=== PATIENT | male | born 1950 | race Caucasian/White ===

== ENCOUNTER 2017-03-18 08:23 | Observation (INO) ==
--- NOTE | 2017-03-18 08:31 | Emergency Department Note ---
Disposition Clinical Impression: Chest pain Disposition: Admitted As Inpatient Condition: Good General Adult HPI - General Chief complaint: ED Chest Pain Stated complaint: Chest Pain Time Seen by Provider: 03/18/17 08:26 Source: patient, EMS Limitations: no limitations - History of Present Illness Pain Scale: 4 - Related Data Home Medications Medication Instructions Recorded Confirmed Levothyroxine Sodium [Synthroid] 88 mcg PO DAILY 05/29/15 03/18/17 Aspirin [Lo-Dose Aspirin EC] 81 mg PO DAILY 03/18/17 03/18/17 Fluticasone Propionate Nasal 50 mcg NS DAILY 03/18/17 03/18/17 [Flonase] Lactobacillus Acidophilus/Fos 1 tab PO DAILY 03/18/17 03/18/17 [Acidophilus Probiotic Tablet] Multivit-Min/FA/Lycopen/Lutein 1 tab PO DAILY 03/18/17 03/18/17 [Centrum Silver Men Tablet] Allergies Allergy/AdvReac Type Severity Reaction Status Date / Time Penicillins Allergy See Verified 03/18/17 09:37 Comments Past Medical History - Past Medical History Medical history: Reports: thyroid disease Psychiatric history: Reports: no psych history - Social History Smoking Status: Never smoker Smokeless Tobacco Status: No Alcohol use: Reports: occasionally Drug use: Reports: none Physical Exam - General Limitations: no limitations General appearance: alert, in no apparent distress Course Vital Signs Temperature 97.5 F L 03/18/17 08:25 Pulse Rate 68 03/18/17 08:25 Respiratory Rate 16 03/18/17 08:25 Blood Pressure 157/106 03/18/17 08:25 O2 Sat by Pulse Oximetry 99 03/18/17 08:25 Temperature 98.1 F 03/18/17 15:02 Pulse Rate 63 03/18/17 15:02 Respiratory Rate 18 03/18/17 15:02 Blood Pressure 106/63 03/18/17 15:02 O2 Sat by Pulse Oximetry 93 03/18/17 15:02 Oxygen Delivery Oxygen Delivery Room Air Medical Decision Making - Lab Data Result diagrams: 03/18/17 08:43 03/18/17 08:43 Lab Results 03/18/17 03/18/17 03/18/17 Range/Units 08:43 08:43 08:43 WBC 3.5 L (4.3-11.1) K/mcL RBC 4.00 L (4.19-5.50) M/mcL Hgb 13.0 (12.9-16.9) g/dL Hct 37.7 (37.5-50.1) % MCV 94.3 (83.0-100.0) fL MCH 32.5 (28.0-33.3) pg MCHC 34.5 (31.6-35.5) g/dL RDW 12.2 (11.5-14.5) % Plt Count 223 (140-400) K/mcL MPV 9.1 L (9.4-12.4) fL Immature Gran % 0.3 (0-4) % Seg Neutrophils % 40.8 % Lymphocytes % 36.3 % Monocytes % 11.0 % Eosinophils % 10.4 % Basophils % 1.2 % Neutrophils # 1.4 L (1.6-8.9) K/mcL Lymphocytes # 1.3 (0.6-4.6) K/mcL Monocytes # 0.4 (0.0-1.3) K/mcL Eosinophils # 0.4 (0.0-0.6) K/mcL Basophils # 0.0 (0.0-0.2) K/mcL Sodium 136 (136-145) mEq/L Potassium 3.5 (3.5-4.5) mEq/L Chloride 102 (98-109) mEq/L Carbon Dioxide 23 (19-29) mEq/L BUN 5 L (8-26) mg/dL Creatinine 0.73 (0.72-1.25) mg/dL Est GFR ( Amer) > 60 (> 60) Est GFR (Non-Af Amer) > 60 (> 60) BUN/Creatinine Ratio 7 (6-26) Glucose 96 (70-99) mg/dL Calculated Osmolality 279 L (280-300) Calcium 8.8 (8.6-10.8) mg/dL Troponin I 0.00 (0-0.03) ng/mL Attestation Statement - Attestation Attestation: I examined this patient and my medical decision-making was reviewed with the REHABILITATION COUNSELOR/PA/Advanced Practice Nurse/Resident Physician. I agree with the documented findings, disposition and treatment plan as described except to the extent set forth below. [id number] time provided Patient presents via EMS complaining of chest discomfort. He denies having any previous past medical history. He appears in acute distress on exam. EKG reviewed by me
--- NOTE | 2017-03-18 08:34 | Emergency Department Note ---
Disposition Clinical Impression: Chest pain Qualifiers: Chest pain type: unspecified Qualified Code(s): R07.9 - Chest pain, unspecified Disposition: Admitted As Inpatient Condition: Good Forms: ED Satisfaction Letter Chest Pain HPI - General Chief Complaint: ED Chest Pain Stated Complaint: Chest Pain Time Seen by Provider: 03/18/17 08:26 Source: patient, EMS Limitations: no limitations Vital Signs Reviewed: Yes Nursing Notes Reviewed: Yes - History of Present Illness HPI Narrative: 66-year-old male with a history of thyroid disease presents to the emergency department with a chief complaint of chest pressure. He woke up this morning about 2 hours ago and had chest pressure in the middle of the chest. He denies any radiation but states he did feel a little weird in the side of his left neck and shoulder. He felt lightheaded like he was going to pass out. He reports he has had milder symptoms of this over the last 4 days. He related this to recently shoveling and performing a lot of manual labor. He states he feels generally weak but not focally. He denies any headache, change in vision. Denies any ripping or tearing chest pain. Denies any shortness of breath. Denies any lower extremity swelling or history of DVT/PE. His mother had heart disease in her 50s an his brother had a heart stent. He has no personal history of coronary disease and states he is very healthy other than taking his Synthroid daily. Severity scale (1-10): 4 - Related Data Home Medications Medication Instructions Recorded Confirmed Levothyroxine Sodium [Synthroid] 88 mcg PO DAILY 05/29/15 Allergies Allergy/AdvReac Type Severity Reaction Status Date / Time Penicillins Allergy See Verified 03/11/16 18:47 Comments All systems ED: reviewed and negative except as stated. Constitutional: Denies: fever Eyes: Denies: vision change Cardiovascular: Reports: chest pain. Denies: palpitations, syncope Respiratory: Denies: dyspnea Gastrointestinal: Denies: abdominal pain, nausea, vomiting Musculoskeletal: Denies: back pain, neck pain Neurological: Denies: headache, weakness, numbness Chest Pain PMH - Past Medical History Medical history: Reports: thyroid disease Psychiatric history: Reports: no psych history - Social History Smoking Status: Never smoker Alcohol use: Reports: occasionally Drug use: Reports: none Physical Exam General: Appears well, alert and oriented x 3 Cardiovascular: Regular rate and rhythm. S1, S2. No murmurs, rubs or gallops. Respiratory: Breath sounds clear bilaterally. No wheezing, rales or rhonchi. No resp distress Abdomen: Soft, nontender. No guarding, rebound or rigidity. Eyes: Conjunctiva clear HENT: No JVD, No oral mucosal lesions. Moist mucous membranes Neuro: Alert and oriented 3, stands nebulous independently Musculoskeletal: No joint tenderness or swelling. There is no redness, swelling , edema, asymmetry or any signs of DVT Skin: No lesions. No diaphoresis. Normal turgor. Normal color Psych: Appropriate - General Limitations: no limitations General appearance: alert, in no apparent distress Course Course Narrative: Presents to the emergency department with chest pressure. He also has sensation to his neck and arm. It abruptly woke him from sleep. No history of CAD however, both his brother and mother had coronary stents placed in their 50s. He had a stress test about 5 years ago but no other testing. EKG shows no acute changes. Troponin is not elevated however his symptoms started only a few hours ago. Vitals have been stable. Labwork unremarkable. Chest x-ray clear. Patient does have a concerning story with a strong family history and we feel it important to admit for further evaluation. I discussed this with the on-call hospitalist, Dr. Pozo who accepts for admission Vital Signs Temperature 97.5 F L 03/18/17 08:25 Pulse Rate 68 03/18/17 08:25 Respiratory Rate 16 03/18/17 08:25 Blood Pressure 157/106 03/18/17 08:25 O2 Sat by Pulse Oximetry 99 03/18/17 08:25 Temperature 97.5 F L 03/18/17 08:25 Pulse Rate 68 03/18/17 08:25 Respiratory Rate 16 03/18/17 08:25 Blood Pressure 157/106 03/18/17 08:25 O2 Sat by Pulse Oximetry 99 03/18/17 08:25 Oxygen Delivery Oxygen Delivery Room Air Chest Pain - MDM Narrative Medical decision making narrative: EKG shows a sinus rhythm with a rate of [address] elevation or depression. Intervals within normal limits. T-wave flattening in lead 3. Previous EKG on 08/04/2014 shows a normal T wave in lead 3 but no other changes. - Lab Data Result diagrams: 03/18/17 08:43 03/18/17 08:43 Lab Results 03/18/17 03/18/17 03/18/17 Range/Units 08:43 08:43 08:43 WBC 3.5 L (4.3-11.1) K/mcL RBC 4.00 L (4.19-5.50) M/mcL Hgb 13.0 (12.9-16.9) g/dL Hct 37.7 (37.5-50.1) % MCV 94.3 (83.0-100.0) fL MCH 32.5 (28.0-33.3) pg MCHC 34.5 (31.6-35.5) g/dL RDW 12.2 (11.5-14.5) % Plt Count 223 (140-400) K/mcL MPV 9.1 L (9.4-12.4) fL Immature Gran % 0.3 (0-4) % Seg Neutrophils % 40.8 % Lymphocytes % 36.3 % Monocytes % 11.0 % Eosinophils % 10.4 % Basophils % 1.2 % Neutrophils # 1.4 L (1.6-8.9) K/mcL Lymphocytes # 1.3 (0.6-4.6) K/mcL Monocytes # 0.4 (0.0-1.3) K/mcL Eosinophils # 0.4 (0.0-0.6) K/mcL Basophils # 0.0 (0.0-0.2) K/mcL Sodium 136 (136-145) mEq/L Potassium 3.5 (3.5-4.5) mEq/L Chloride 102 (98-109) mEq/L Carbon Dioxide 23 (19-29) mEq/L BUN 5 L (8-26) mg/dL Creatinine 0.73 (0.72-1.25) mg/dL Est GFR ( Amer) > 60 (> 60) Est GFR (Non-Af Amer) > 60 (> 60) BUN/Creatinine Ratio 7 (6-26) Glucose 96 (70-99) mg/dL Calculated Osmolality 279 L (280-300) Calcium 8.8 (8.6-10.8) mg/dL Troponin I 0.00 (0-0.03) ng/mL
[2017-03-18 08:55] LABS: Basophils % 1.2 %; Eosinophils # 0.4 K/mcL (0.0-0.6); Eosinophils % 10.4 %; Hematocrit 37.7 % (37.5-50.1); Immature Granulocytes % 0.3 % (0-4); Lymphocytes # 1.3 K/mcL (0.6-4.6); Lymphocytes % 36.3 %; Mean Corpuscular HGB Conc 34.5 g/dL (31.6-35.5); Mean Corpuscular Hemoglobin 32.5 pg (28.0-33.3); Mean Corpuscular Volume 94.3 fL (83.0-100.0); Mean Platelet Volume 9.1 fL (9.4-12.4); Monocytes # 0.4 K/mcL (0.0-1.3); Neutrophils # 1.4 K/mcL (1.6-8.9); Platelet Count 223 K/mcL (140-400); Red Cell Distribution Width 12.2 % (11.5-14.5); Segmented Neutrophils % 40.8 %
[2017-03-18 09:07] LABS: BUN/Creatinine Ratio 7 (6-26); Calcium 8.8 mg/dL (8.6-10.8); Carbon Dioxide 23 mEq/L (19-29); Chloride 102 mEq/L (98-109); Glucose 96 mg/dL (70-99); Osmolality,Calculated 279 (280-300); Potassium 3.5 mEq/L (3.5-4.5); Sodium 136 mEq/L (136-145); eGFR For African Americans > 60 (> 60); eGFR For Non-African Americans > 60 (> 60)
[2017-03-18 09:10] LABS: Blood Urea Nitrogen 5 mg/dL (8-26)
[2017-03-18] MEDS ORDERED: Acetaminophen 325 MG TABLET PO PRN (09:31)
[2017-03-18] MEDS ORDERED: Ondansetron 4 MG/2 ML VIAL IVP PRN (09:31)
[2017-03-18] MEDS ORDERED: Naloxone 0.4 MG/ML INJ IVP PRN (09:31)
[2017-03-18] MEDS ORDERED: Nitroglycerin 0.4 MG TAB.SUBL SL PRN (09:31)
--- NOTE | 2017-03-18 10:12 | Internal Med History&Physical ---
Date of Encounter: 03/18/17 Time of Encounter: 10:10 Assessment and Plan (1) Chest pain Current visit: Yes Status: Acute Patient had chest pain that started 2 days ago after heavy exertion and which occurred today that woke him out of sleep. Patient has a history of injury that he sustained to his ribs during a wrestling match about 20 years ago which he states has caused him pain that has never resolved. He thinks that his chest pain may be related to worsening of his rib pain due to shoveling as he is the left handed person. Examination reveals reproducible chest wall tenderness. EKG reveals normal sinus rhythm without any ST-T wave changes. Troponin is negative. Patient will be placed under observation telemetry. Troponins will be cycled. Due to his age and history of TIA, he will undergo an exercise stress test if his troponins are negative. Continue aspirin and start him on statin given his history of TIA. Qualifiers: Chest pain type: precordial pain Qualified Code(s): R07.2 - Precordial pain (2) Hypothyroidism Current visit: Yes Status: Chronic Check TSH level. Continue home dose of Synthroid. Qualifiers: Hypothyroidism type: unspecified Qualified Code(s): E03.9 - Hypothyroidism , unspecified (3) H/O TIA (transient ischemic attack) and stroke Current visit: Yes Status: Chronic Patient is currently on aspirin. No neurological deficits. Start the patient on statin due to his history of TIA. (4) Alcohol abuse Current visit: Yes Status: Chronic Patient counseled regarding the need for cutting down on his alcohol use. We will start the patient on folic acid and thiamine. Matthew protocol and monitor for all called withdrawal seizures or delirium tremens. Internal Medicine - H&P: HPI Chief complaint: Chest pressure Admitted From: Emergency Dept Plans for Post Hospital Care: Home History of present illness: Mr. Rodriguez is a 66 year old male with a history significant only for hypothyroidism and TIA about 2 years ago presented to the emergency department due to chest pressure. Patient states that the current complaint started 2 days ago at 5 PM. He states that 2 days ago in the afternoon he was shoveling and later he was mowing his lawn on an incline. After he was done with these activities at about 5 PM, he started experiencing chest pain on the left side of his chest which he describes as a pressure-like sensation of 5/10 intensity without any radiation. No aggravating or relieving factors. This was associated with mild shortness of breath. He describes it as "as if his heart is in his throat". He had a second episode of chest pain that woke him up from sleep today morning about 3 hours ago. He states that his pain was again on the left side and he described it as a pressure-like sensation of 6/10 intensity without any radiation. He states that he also felt tingling all over his body and felt a funny sensation in his neck. This was associated with feeling lightheaded. He reports having mild palpitations which she attributes to anxiety. He denies any cough, wheezing, fever or chills. He denies any vomiting though he reports mild nausea. He denies any abdominal pain, diarrhea or constipation. He denies any recent weight changes or changes in his appetite. Past Med Surg Social Fam HX - Past Medical History Attestation: Yes The following information was validated with the patient. Source: patient Medical history: thyroid disease, TIA, other (Bruxism) Psychiatric history: no psych history - Past Surgical History Surgical History: other (Cleft lip surgery) - Social History Smoking Status: Former smoker Smokeless Tobacco Status: No Alcohol use: heavy (4 glasses of wine every day over the past 6 years) Drug use: none Occupational status: retired Current living situation: Home - Independent Activity Level: Independent ambulation Recent Out of Country Travel Within the Last 8 Weeks: No Exposure or Possible Exposure to Illness During Travel: No - Family History Brother Hx Family Cardiac Disorders: Yes (Coronary artery disease and stent at the age of 69) Father Hx Family GI Disorders: Yes (Liver cirrhosis) Mother Hx Family Cancer: Yes (Breast cancer) Internal Medicine - H&P: Meds Levothyroxine Sodium [Synthroid] 88 mcg PO DAILY 05/29/15 [History] Aspirin [Lo-Dose Aspirin EC] 81 mg PO DAILY 03/18/17 [History] Fluticasone Propionate Nasal [Flonase] 50 mcg NS DAILY 03/18/17 [History] Lactobacillus Acidophilus/Fos [Acidophilus Probiotic Tablet] 1 tab PO DAILY [History] Multivit-Min/FA/Lycopen/Lutein [Centrum Silver Men Tablet] 1 tab PO DAILY [History] Allergies Penicillins Allergy (Verified 03/18/17 09:37) See Comments Patient is unsure of reaction- All Systems PM: A 10-system review of systems was performed and is negative for pertinent findings except as documented above in the HPI. Review of systems: 10 systems have been reviewed and are negative except as mentioned in the history of present illness - Constitutional Vitals: Temp Pulse Resp BP Pulse Ox 97.5 F L 68 16 157/106 99 03/18/17 08:25 03/18/17 08:25 03/18/17 08:25 03/18/17 08:25 03/18/17 08:25 Exam: Gen.: Lying in bed. Mild distress. Eyes: Pupils equal, round and reactive to light. Extraocular muscles intact. ENT: Moist mucous membranes. No oropharyngeal erythema or discharge. Chest: Clear to auscultation bilaterally. No adventitious sounds present. CVS: First and second heart sounds present. No murmurs, rubs or gallops. Regular rate and rhythm. Tenderness to palpation bilaterally in the mammary and infra-axillary regions. Abdomen: Soft, nontender, nondistended. Bowel sounds present. No hepatosplenomegaly. Skin: No decubitus ulcers appreciated. 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 Psychiatric: Alert, awake and oriented to time, place and person. Lymphatic system: No lymphadenopathy appreciated Internal Med - H&P Results - Labs CBC & Chem 7: 03/18/17 08:43 03/18/17 08:43 Labs: Short CBC 03/18/17 Range/Units 08:43 WBC 3.5 L (4.3-11.1) K/mcL Hgb 13.0 (12.9-16.9) g/dL Hct 37.7 (37.5-50.1) % Plt Count 223 (140-400) K/mcL Neutrophils # 1.4 L (1.6-8.9) K/mcL BMP 03/18/17 08:43 Sodium 136 Potassium 3.5 Chloride 102 Carbon Dioxide 23 BUN 5 L Creatinine 0.73 Glucose 96 Calcium 8.8 Cardiac Enzymes 03/18/17 Range/Units 08:43 Troponin I 0.00 (0-0.03) ng/mL - EKG Data -: EKG Interpreted by Myself EKG shows normal: sinus rhythm Rate: normal - EKG Data Prior EKG available for review: yes When compared to previous EKG: there is no significant change - Impressions ITS Impressions Chest X-Ray 03/18/17 08:31 IMPRESSION: No acute cardiopulmonary process. D/ / 03/18/2017 08:57:01 Alexandria Corcoran MD / domingo Interpreting Provider: Alexandria Corcoran MD - Diagnostic Studies Chest x-ray Status: image reviewed by me (No acute infiltrate or abnormalities seen)
[2017-03-18] MEDS ORDERED: *HR* LORazepam 2 MG/ML VIAL IVP PRN ×3 (10:25)
[2017-03-18] MEDS: Thiamine (B-1) 100 MG TABLET PO SCH (11:07)
[2017-03-18] MEDS: Folic Acid 1 MG TABLET PO SCH (11:07)
[2017-03-18 13:58] LABS: Amphetamine Screen,Urine Negative ng/mL (Cutoff=1000); Barbiturate Screen,Urine Negative ng/mL (Cutoff=200); Benzodiazepines Screen,Urine Negative ng/mL (Cutoff=200); Cannabinoid Screen,Urine Negative ng/mL (Cutoff = 50); Cocaine Screen,Urine Negative ng/mL (Cutoff= 300); Opiate Screen,Urine Negative ng/mL (Cutoff=300); Phencyclidine Screen,Urine Negative ng/mL (Cutoff=25)
[2017-03-19 03:56] LABS: Basophils % 0.6 %; Eosinophils # 0.4 K/mcL (0.0-0.6); Eosinophils % 7.1 %; Hematocrit 38.5 % (37.5-50.1); Hemoglobin 13.1 g/dL (12.9-16.9); Immature Granulocytes % 0.3 % (0-4); Lymphocytes # 1.8 K/mcL (0.6-4.6); Lymphocytes % 28.4 %; Mean Corpuscular Hemoglobin 32.7 pg (28.0-33.3); Mean Platelet Volume 9.5 fL (9.4-12.4); Monocytes # 0.7 K/mcL (0.0-1.3); Monocytes % 11.3 %; Neutrophils # 3.2 K/mcL (1.6-8.9); Platelet Count 212 K/mcL (140-400); Red Blood Count 4.01 M/mcL (4.19-5.50); Red Cell Distribution Width 12.3 % (11.5-14.5); Segmented Neutrophils % 52.3 %
[2017-03-19 04:13] LABS: Alanine Aminotransferase 14 Units/L (0-55); Albumin 3.3 g/dL (3.5-5.0); Albumin/Globulin Ratio 1.1 (1.1-2.2); Alkaline Phosphatase 54 Units/L (38-126); Aspartate Amino Transferase 28 Units/L (5-34); BUN/Creatinine Ratio 13 (6-26); Bilirubin,Total 0.7 mg/dL (0.2-1.2); Blood Urea Nitrogen 12 mg/dL (8-26); Calcium 8.7 mg/dL (8.6-10.8); Carbon Dioxide 25 mEq/L (19-29); Chloride 107 mEq/L (98-109); Globulin 3.1 g/dL (2.4-3.5); Glucose 92 mg/dL (70-99); Osmolality,Calculated 287 (280-300); Sodium 139 mEq/L (136-145); Total Protein 6.4 g/dL (6.0-8.3); eGFR For African Americans > 60 (> 60); eGFR For Non-African Americans > 60 (> 60)
[2017-03-19 04:21] LABS: Potassium 3.7 mEq/L (3.5-4.5)
[2017-03-19] MEDS: Folic Acid 1 MG TABLET PO SCH (08:35)
[2017-03-19] MEDS: Thiamine (B-1) 100 MG TABLET PO SCH (08:35)
[2017-03-19] MEDS ORDERED: Aspirin Enteric Coated 81 MG Tablet PO SCH (09:00)
[2017-03-19 11:29] VITALS: BP 102/65
--- NOTE | 2017-03-19 14:41 | Exercise Stress Test ---
Exercise Stress Name: Nico Rodriguez Date of Study: 03/19/2017 Date: 1950 Ht: 66.0in Medical Record#: [id number] Age: 66 Wt: 130.0lb Gender: Male BSA: 1.67 Order #: [id number] Location: [facility] Room #: 3B23 Reading Physician: Santy Gamble MD, [facility] Technologist: Max Williamson, BUTTON CUTTING MACHINE OPERATOR, CCT Supervising Provider: Doug Joyner CNP Primary Physician: Shahnaz Paulino MD Ordering Physician: Karina Mallory CNP Impressions: Stress ECG was negative for ischemia. Exercise capacity was average. No arrhythmias noted with stress. Patient had chest pain before and during stress that did not change. Findings: Normal sinus rhythm No baseline arrhythmias were noted. Stress ECG is negative for ischemia. No arrhythmias noted during exercise or recovery. The patient demonstrated a hypertensive blood pressure response. The exercise capacity was average. Atypical chest pain History: No No Stress Test Summary: Stress Test Type: Treadmill Protocol: Santy Baseline Information: Maximum Predicted HR: 156 85% MPHR: 133 Blood Pressure: 94 / 70 Stress Information: Total Exercise Time: 11 00 Test Terminated Due To: Dyspnea Maximum Blood Pressure: 140 / 80 Maximum Heart Rate: 133 Percent Maximum Heart Rate Achieved: 85 Double Product: 18,620 METS Reached: 12.8 Updated by Santy Gamble MD, [facility] on 03/19/2017 2:32:41 PM electronically signed on 03/19/2017 2:35:30 PM with status of Final
--- NOTE | 2017-03-19 15:10 | Discharge Summary ---
Date of Encounter: 03/19/17 Time of Encounter: 14:45 - Discharge Diagnosis (1) Chest pain Priority: Primary Status: Acute Comments: Chest x-ray negative. Troponins negative. Exercise stress test negative. ACS ruled out. Qualifiers: Chest pain type: precordial pain Qualified Code(s): R07.2 - Precordial pain (2) Pleurisy Priority: Primary Status: Suspected (3) Alcohol abuse Priority: Secondary Status: Chronic Comments: No Signs of withdrawal during this admission (4) H/O TIA (transient ischemic attack) and stroke Priority: Secondary Status: Chronic Comments: No focal neurological weakness is present on examination (5) Hypothyroidism Priority: Secondary Status: Chronic Comments: TSH normal Qualifiers: Hypothyroidism type: unspecified Qualified Code(s): E03.9 - Hypothyroidism , unspecified - Discharge Medications Prescriptions: Ibuprofen [Motrin] 600 mg PO Q8HR PRN #30 tab PRN Reason: Pain Lidocaine Patch [Lidoderm 5% patch] 1 each TP DAILY PRN #20 adh..patch PRN Reason: Pain Omeprazole 20 mg PO DAILY #14 tablet. Home Medications: Levothyroxine Sodium [Synthroid] 88 mcg PO DAILY 05/29/15 [History] Aspirin [Lo-Dose Aspirin EC] 81 mg PO DAILY 03/18/17 [History] Fluticasone Propionate Nasal [Flonase] 50 mcg NS DAILY 03/18/17 [History] Lactobacillus Acidophilus/Fos [Acidophilus Probiotic Tablet] 1 tab PO DAILY [History] Multivit-Min/FA/Lycopen/Lutein [Centrum Silver Men Tablet] 1 tab PO DAILY [History] Ibuprofen [Motrin] 600 mg PO Q8HR PRN #30 tab 03/19/17 [Rx] Lidocaine Patch [Lidoderm 5% patch] 1 each TP DAILY PRN #20 adh..patch 03/19/17 [Rx] Omeprazole 20 mg PO DAILY #14 tablet. 03/19/17 [Rx] Allergies/Adverse Reactions: Allergies Penicillins Allergy (Verified 03/18/17 09:37) See Comments Patient is unsure of reaction- Procedures/tests Complete & Pending: Procedures Performed prior 72 hours Category Date Time Status SP exercise stress ECG Routine Y 03/19/17 Completed Date of admission: 03/18/17 09:39 Primary care physician: Shahnaz Ambrose Discharging clinician: Karina Mallory Anticipated date of discharge: 03/19/17 - Patient Status Disposition: Home, Self-Care Condition: Good Functional capacity at discharge: independent ambulation Overall status at discharge: patient is back to baseline - Discharge Instructions Follow Up With: Shahnaz Paulino MD [Primary Care Provider] - Additional Instructions: Follow-up with primary care provider within one to 2 weeks - Diet and Activity Activity: increase activity as tolerated Diet: low fat, low cholesterol Hospital course: Mr. Rodriguez is a 66 year old male with past mental history of hypothyroidism, prior TIA, daily alcohol abuse. Patient presented to the emergency department chief complaint of chest pressure. Patient stating that 2 days prior to presentation that he was shoveling and then later mowing his lawn when he was done with those activities, he experienced chest pain on the left side of his chest described as pressure-like sensation without radiation. He denied adequate aggravating or relieving factors. Patient also endorses mild shortness of breath. Patient described it as if his heart was in his throat. Patient then went to bed and woke up from sleep secondary to the pain. The pain was again on his left side of his chest and described as pressure-like without radiation. Patient also had tingling all over his body and he had a funny sensation in his neck. Sensation was associated with lightheadedness and mild palpitations which he attributed to anxiety. Patient denied cough, wheezing, fever or chills. He denied vomiting but did endorse mild nausea. Workup in the emergency department unremarkable. Chest x-ray negative. Tox screen negative. Patient was admitted to the hospitalist service for further evaluation and management. Troponins were negative. Patient had an exercise Stress test that was negative for ischemia or infarct. On examination, patient' s chest pain is reproducible with palpation highly consistent with musculoskeletal etiology. Patient stating he suffered a rib injury while wrestling with somebody quite a bit larger than he is about 20 years ago he states that he has had rib pain almost on a daily basis since that injury. Strong suspicion for pleurisy as his pain is worsened with deep breath and movement. We will trial one week of ibuprofen. Omeprazole added as he drinks 4 glasses of wine per day, to avoid ulcer. His pain was also alleviated with the use of a lidocaine patch which he was given a prescription for. Acute coronary syndrome ruled out. He was discharged home in stable condition with close outpatient follow-up recommended. ITS Impressions Chest X-Ray 03/18/17 08:31 IMPRESSION: No acute cardiopulmonary process. D/ / 03/18/2017 08:57:01 Alexandria Corcoran MD / domingo Interpreting Provider: Alexandria Corcoran MD Exercise stress impressions: Stress ECG was negative for ischemia. Exercise capacity was average. No arrhythmias noted with stress. Patient had chest pain before and during stress that did not change. Findings: Normal sinus rhythm. No baseline arrhythmias were noted. Stress ECG is negative for ischemia. No arrhythmias noted during exercise or recovery. The patient demonstrated a hypertensive blood pressure response. Exercise capacity was average. Atypical chest pain. - Time Spent with Patient Total time spent providing and/or coordinating discharge services: - Constitutional Vitals: Temp Pulse Resp BP Pulse Ox 97.4 F L 67 16 102/65 97 03/19/17 11:28 03/19/17 11:28 03/19/17 11:28 03/19/17 11:28 03/19/17 11:28 General appearance: Present: A&O X 3, pleasant, no acute distress, answers questions appropriately - Head Head exam: Present: atraumatic, normocephalic - Eye Eye exam: Present: PERRL, conjuntiva pink, sclera anicteric Pupils: Present: PERRL - Neck Neck exam general surgery: Present: supple, trachea midline. Absent: lymphadenopathy - Respiratory Respiratory exam: Present: chest wall tenderness, CTAB. Absent: accessory muscle use, rales, respiratory distress, rhonchi, wheezes - Cardiovascular Cardiovascular exam: Present: RRR, +S1, +S2. Absent: diastolic murmur, gallop, rubs, systolic murmur - GI/Abdominal GI/Abdominal exam: Present: normal bowel sounds, soft, no peritoneal signs. Absent: distended, tenderness - Extremities Exam Extremities exam: Present: warm, radial pulses palpable and symetrical. Absent : calf tenderness, cyanotic, pedal edema - Neurological Exam Neurological exam: Present: alert, CN II-XII intact, normal gait, oriented X3, no focal deficits, strengths equal and symetr throughout. Absent: pronater drift, facial droop, speech deficit - Skin Skin exam: Present: dry, intact, pallor, warm
--- NOTE | 2017-03-19 20:13 | Electrocardiograph Report ---
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
== END 2017-03-19 15:35 | disposition home or self-care (01) ==
LOC: EMEROO 08:23 → 3BNU 08:23
PROVIDERS: ADMIT Internal Medicine Sleep Medicine; ATTEND Nurse Practitioner Family

== ENCOUNTER 2017-08-05 11:14 | Observation (INO) ==
--- NOTE | 2017-08-05 11:28 | Emergency Department Note ---
Disposition Clinical Impression: Chest pain Qualifiers: Chest pain type: unspecified Qualified Code(s): R07.9 - Chest pain, unspecified Disposition: Admitted As Inpatient Condition: Good Referrals: Shahnaz Paulino MD [Primary Care Provider] - Forms: ED Satisfaction Letter Time of Disposition: 13:33 General Adult HPI - General Chief complaint: ED Chest Pain Stated complaint: Chest pain Time Seen by Provider: 08/05/17 11:19 Source: patient Limitations: no limitations Nursing Notes Reviewed: Yes Vital Signs Reviewed: Yes - History of Present Illness HPI Narrative: Patient complaining of a generalized weakness feeling. Also states that he started having left-sided chest pain yesterday. Also complaining of left arm pain. Right upper leg pain and right calf pain. States the chest pain as an ache. Does have associated dyspnea with this area no nausea or vomiting. Has not tried anything to relieve this. No provoking factors. The pain started while he was at rest. He has had this pain before and has had a cardiac workup. Pain Scale: 5 - Related Data Home Medications Medication Instructions Recorded Confirmed Levothyroxine Sodium [Synthroid] 88 mcg PO DAILY 05/29/15 03/18/17 Aspirin [Lo-Dose Aspirin EC] 81 mg PO DAILY 03/18/17 03/18/17 Fluticasone Propionate Nasal 50 mcg NS DAILY 03/18/17 03/18/17 [Flonase] Lactobacillus Acidophilus/Fos 1 tab PO DAILY 03/18/17 03/18/17 [Acidophilus Probiotic Tablet] Multivit-Min/FA/Lycopen/Lutein 1 tab PO DAILY 03/18/17 03/18/17 [Centrum Silver Men Tablet] Previous Rx's Medication Instructions Recorded Ibuprofen [Motrin] 600 mg PO Q8HR PRN #30 tab 03/19/17 Lidocaine Patch [Lidoderm 5% patch] 1 each TP DAILY PRN #20 adh..patch 03/19/17 Omeprazole 20 mg PO DAILY #14 tablet. 03/19/17 Allergies Allergy/AdvReac Type Severity Reaction Status Date / Time Penicillins Allergy See Verified 07/29/17 20:19 Comments All systems ED: reviewed and negative except as stated. Constitutional: Denies: fever, chills ENT ED: Denies: congestion Cardiovascular: Reports: chest pain. Denies: palpitations, dyspnea on exertion , syncope Respiratory: Reports: dyspnea (Associated with the chest pain). Denies: cough, wheezes Gastrointestinal: Denies: abdominal pain, nausea, vomiting, diarrhea, hematemesis, melena, hematochezia Genitourinary: Denies: urgency, dysuria, frequency, hematuria Musculoskeletal: Reports: other (Left arm pain. To the forearm area. Also complaining of nodules to his left forearm and left wrist.). Denies: back pain , neck pain Integumentary: Denies: rash Neurological: Reports: weakness. Denies: headache, numbness, paresthesias Endocrine: Reports: fatigue Past Medical History - Past Medical History Attestation: Yes The following information was validated with the patient. Source: patient Medical history: Reports: thyroid disease Surgical history: Reports: other Psychiatric history: Reports: no psych history - Social History Smoking Status: Never smoker Smokeless Tobacco Status: No Alcohol use: Reports: occasionally Drug use: Reports: none Physical Exam - General Limitations: no limitations General appearance: alert, in no apparent distress - Head Head exam: atraumatic, normocephalic, normal inspection - Eye Eye exam: Present: normal appearance, PERRL, EOMI. Absent: scleral icterus - ENT ENT exam: normal exam, normal oropharynx, mucous membranes moist - Neck Neck exam: Present: normal inspection, full ROM, trachea midline. Absent: tenderness, meningismus, lymphadenopathy - Chest Chest inspection: Present: normal inspection, symmetric chest wall rise. Absent : tenderness - Respiratory Respiratory exam: Present: normal lung sounds bilaterally. Absent: respiratory distress, accessory muscle use - Cardiovascular Cardiovascular exam: Present: regular rate, normal rhythm, normal heart sounds - Abdominal Exam Abdominal exam: Present: soft, Non-Tender, normal bowel sounds. Absent: tenderness, distention, guarding, rebound, rigidity, organomegaly - Extremities Exam Extremities exam: Present: normal inspection, full ROM, other (Nodule to left wrist and dorsal aspect of left forearm.). Absent: tenderness, pedal edema - Back Exam Back exam: Present: normal inspection, full ROM. Absent: tenderness - Neurological Exam Neurological exam: Present: alert, oriented X3 - Psychiatric Psychiatric exam: Present: normal affect, normal mood - Skin Skin exam: Present: warm, dry, intact, normal color. Absent: rash, cyanosis, diaphoresis, erythema Course Course Narrative: Male patient presenting to the emergency room by EMS for left-sided chest pain. States it started yesterday. Also complaining of generalized weakness. States his pain is on the left upper portion of his chest and as an ache. It is nonconstant. Is also having some left arm pain. He has some cysts noted in his left forearm he states it does not feel the same as the normal pain that he has there. But he does pinpoint the pain in his left arm to his forearm area. He is also complaining of some right groin pain and right calf pain. No history of any blood clots. States he has had this leg ultrasound previously for a possible blood clot states it feels the same however he has had some recent travel overseas. He denies any recent illnesses. He denies any nausea vomiting or diarrhea. He does report associated dyspnea with the chest pain. He does not appear to be in distress while resting in bed however is anxious. He is tremulous when I listened to his chest and becomes tearful. Would question if it is from the pain he says no he's just anxious. Patient has had a cardiac workup in the past for pains similar to this and had a negative stress test. He also had a cardiac catheter approximately 9 years ago. States he is otherwise healthy and very active. We will do a cardiac workup on patient. He did receive aspirin by EMS prior to arrival here. - Reevaluation(s) Reevaluation #1: Patient's workup is grossly normal. We will admit patient for ACS rule out. We will also have him follow-up with oncology for his low white blood cell count. Patient is agreeable with this. He is resting comfortably in bed at this time in no distress. Time: 13:30 - Consultations Consultation #1: Spoke with Dr Wilfred Vela. We are concerned about the patient's low white blood cell count. He requested we add a peripheral blood smear to the lab work. He states that they will follow-up with the patient on Monday to have an appointment with him. Time: 12:42 Consultation #2: Dr. Do accepted patient in stable condition. Time: 13:43 Vital Signs Temperature 98.1 F 08/05/17 11:15 Pulse Rate 81 08/05/17 11:15 Respiratory Rate 18 08/05/17 11:15 Blood Pressure 141/92 08/05/17 11:15 O2 Sat by Pulse Oximetry 100 08/05/17 11:15 Temperature 98.1 F 08/05/17 11:15 Pulse Rate 79 08/05/17 12:21 Respiratory Rate 18 08/05/17 12:21 Blood Pressure 121/77 08/05/17 12:21 O2 Sat by Pulse Oximetry 96 08/05/17 12:21 Oxygen Delivery Oxygen Delivery Nasal Cannula Medical Decision Making - Medical Records Medical records reviewed: Yes I reviewed the patient's medical records. - Lab Data Lab results reviewed: Yes I reviewed the patient's lab results. Result diagrams: 08/05/17 11:35 08/05/17 11:35 Lab Results 08/05/17 08/05/17 08/05/17 Range/Units 11:35 11:35 11:35 WBC 2.6 L (4.3-11.1) K/mcL RBC 4.01 L (4.19-5.50) M/mcL Hgb 12.9 (12.9-16.9) g/dL Hct 37.2 L (37.5-50.1) % MCV 92.8 (83.0-100.0) fL MCH 32.2 (28.0-33.3) pg MCHC 34.7 (31.6-35.5) g/dL RDW 11.8 (11.5-14.5) % Plt Count 217 (140-400) K/mcL MPV 8.9 L (9.4-12.4) fL Immature Gran % 0.8 (0-4) % Seg Neutrophils % 58.5 % Lymphocytes % 26.9 % Monocytes % 9.6 % Eosinophils % 2.7 % Basophils % 1.5 % Neutrophils # 1.5 L (1.6-8.9) K/mcL Lymphocytes # 0.7 (0.6-4.6) K/mcL Monocytes # 0.3 (0.0-1.3) K/mcL Eosinophils # 0.1 (0.0-0.6) K/mcL Basophils # 0.0 (0.0-0.2) K/mcL PT 10.0 (9.4-12.1) Seconds INR 0.9 APTT 26.3 (26.0-36.0) Seconds D-Dimer < 215 (0-500) ng/mLFEU Sodium 130 L (136-145) mEq/L Potassium 3.7 (3.5-4.5) mEq/L Chloride 96 L (98-109) mEq/L Carbon Dioxide 25 (19-29) mEq/L BUN 7 L (8-26) mg/dL Creatinine 0.74 (0.72-1.25) mg/dL Est GFR ( Amer) > 60 (> 60) Est GFR (Non-Af Amer) > 60 (> 60) BUN/Creatinine Ratio 9 (6-26) Glucose 121 H (70-99) mg/dL Calculated Osmolality 269 L (280-300) Calcium 8.9 (8.6-10.8) mg/dL Troponin I (0-0.03) ng/mL 08/05/17 Range/Units 11:35 WBC (4.3-11.1) K/mcL RBC (4.19-5.50) M/mcL Hgb (12.9-16.9) g/dL Hct (37.5-50.1) % MCV (83.0-100.0) fL MCH (28.0-33.3) pg MCHC (31.6-35.5) g/dL RDW (11.5-14.5) % Plt Count (140-400) K/mcL MPV (9.4-12.4) fL Immature Gran % (0-4) % Seg Neutrophils % % Lymphocytes % % Monocytes % % Eosinophils % % Basophils % % Neutrophils # (1.6-8.9) K/mcL Lymphocytes # (0.6-4.6) K/mcL Monocytes # (0.0-1.3) K/mcL Eosinophils # (0.0-0.6) K/mcL Basophils # (0.0-0.2) K/mcL PT (9.4-12.1) Seconds INR APTT (26.0-36.0) Seconds D-Dimer (0-500) ng/mLFEU Sodium (136-145) mEq/L Potassium (3.5-4.5) mEq/L Chloride (98-109) mEq/L Carbon Dioxide (19-29) mEq/L BUN (8-26) mg/dL Creatinine (0.72-1.25) mg/dL Est GFR ( Amer) (> 60) Est GFR (Non-Af Amer) (> 60) BUN/Creatinine Ratio (6-26) Glucose (70-99) mg/dL Calculated Osmolality (280-300) Calcium (8.6-10.8) mg/dL Troponin I 0.00 (0-0.03) ng/mL - Radiology Data Radiology results reviewed: Yes I reviewed the patient's radiology results. Chest X-Ray 08/05/17 11:24 IMPRESSION: 1. No acute cardiopulmonary disease. 2. COPD. D/ : / 08/05/2017 11:46:04 Wendy López MD / [facility] [place] Interpreting Provider: Wendy López MD - EKG Data EKG #1 EKG attestation: Yes I reviewed and interpreted this EKG. EKG results narrative: Normal sinus rhythm at a rate 77. NH interval is 148. Respiration is 113. QT is 359. 2 TC is 391. No signs of acute ischemia. No significant change from previous EKG dated 04/16/2017.
[2017-08-05 11:52] LABS: Basophils % 1.5 %; Eosinophils # 0.1 K/mcL (0.0-0.6); Eosinophils % 2.7 %; Hematocrit 37.2 % (37.5-50.1); Hemoglobin 12.9 g/dL (12.9-16.9); INR 0.9; Immature Granulocytes % 0.8 % (0-4); Lymphocytes # 0.7 K/mcL (0.6-4.6); Lymphocytes % 26.9 %; Mean Corpuscular HGB Conc 34.7 g/dL (31.6-35.5); Mean Corpuscular Hemoglobin 32.2 pg (28.0-33.3); Mean Corpuscular Volume 92.8 fL (83.0-100.0); Mean Platelet Volume 8.9 fL (9.4-12.4); Monocytes # 0.3 K/mcL (0.0-1.3); Monocytes % 9.6 %; Neutrophils # 1.5 K/mcL (1.6-8.9); Platelet Count 217 K/mcL (140-400); Red Blood Count 4.01 M/mcL (4.19-5.50); Red Cell Distribution Width 11.8 % (11.5-14.5); Segmented Neutrophils % 58.5 %
[2017-08-05 11:55] LABS: Activated Partial Thrombo Time 26.3 Seconds (26.0-36.0)
[2017-08-05 11:59] LABS: BUN/Creatinine Ratio 9 (6-26); Blood Urea Nitrogen 7 mg/dL (8-26); Calcium 8.9 mg/dL (8.6-10.8); Carbon Dioxide 25 mEq/L (19-29); Chloride 96 mEq/L (98-109); Glucose 121 mg/dL (70-99); Osmolality,Calculated 269 (280-300); Potassium 3.7 mEq/L (3.5-4.5); Sodium 130 mEq/L (136-145); eGFR For African Americans > 60 (> 60); eGFR For Non-African Americans > 60 (> 60)
[2017-08-05 12:05] LABS: D-Dimer < 215 ng/mLFEU (0-500)
[2017-08-05] MEDS ORDERED: 0.9 % Sodium Chloride 500 ML IVC ONE (12:22)
--- NOTE | 2017-08-05 12:23 | Emergency Department Note ---
START Narrative - START START: I examined this patient and my medical decision-making was reviewed with the Resident Physician. I agree with the documented findings, disposition and treatment plan as described except to the extent set forth below. 66 yo M here for chest pain radiating to left arm. associated weakness. right leg pain. recent travel to [place]. no fevers. some lab abnormalities with low wbc and rbc. will consult with Hem/Onc. likely admission for observation. ekg ok
[2017-08-05] MEDS ORDERED: Naloxone 0.4 MG/ML INJ IVP PRN (14:34)
--- NOTE | 2017-08-05 14:35 | Event Note ---
Date of Encounter: 08/05/17 Time of Encounter: 14:34 Patient seen and examined with nurse practitioner. Patient presents with musculoskeletal complaints. Symptoms does not appear to be related to coronary disease. He had a prior coronary angiogram in 2008 which did not show any blockages. We check CPK, ESR, CRP, rheumatoid factor, AMA. Observation admission.
--- NOTE | 2017-08-05 14:49 | Internal Med History&Physical ---
Date of Encounter: 08/05/17 Time of Encounter: 14:39 Assessment and Plan (1) ACS (acute coronary syndrome) Current visit: Yes Status: Acute 2 day history of generalized weakness, fatigue and chest pain described as a "radiation to left shoulder and left arm. Was recently admitted for similar presentation and cardiac workup was negative. Heart catheter in 2008 negative for occlusive disease. Initial Troponin negative, chest x-ray negative for acute pulmonary process. Symptoms appear to be more musculoskeletal than coronary but I will continue to rule out ACS Serial troponins Continuous tele No stress test at this time as last one was completed in February of 2017 and was found to be negative for ischemic disease CBC, BMP in the morning (2) Generalized weakness Current visit: Yes Status: Acute C/o generalized weakness LUE and LLE pain, fatigue and chest pain that appears to be more musculoskeletal than cardiac. Has leukopenia which he has had in the past and was previously followed by [facility]. Ordering a rheumatoid factor, BRIANDA, ESR, CRP, CPK. (3) Hypothyroidism Current visit: Yes Status: Chronic Recent TSH stable Qualifiers: Hypothyroidism type: unspecified Qualified Code(s): E03.9 - Hypothyroidism , unspecified (4) H/O TIA (transient ischemic attack) and stroke Current visit: Yes Status: Chronic No neuroweakness present on exam, no focal deficits (5) Alcohol abuse Current visit: Yes Status: Chronic Reports drinking 4 glasses of wine mulitiple days a week. Denies any h/o ETOH withdrawal, but will continue to monitor for signs and symptoms. (6) DVT prophylaxis Current visit: Yes Status: Acute Lovenox 40mg SC daily Internal Medicine - H&P: HPI Chief complaint: Generalized weakness, CP Admitted From: Home Plans for Post Hospital Care: Home History of present illness: Mr. Rodriguez is a 66 year old male with a PMH of hypothyroidism, daily alcohol use and her TIA. He presents to the [facility] with complaints of generalized weakness and chest pain which began yesterday afternoon patient describes the chest pain as an intermittent ache with radiation to left shoulder and left arm. Additionally complains of mild dyspnea upon exertion when experiencing chest pain and some lightheadedness. He Reports that the symptoms are markedly better since yesterday and he feels that they still needed to be looked into to further. Patient was recently noted to [facility] with a similar presentation. At that time he underwent a stress test and was found to be negative for ischemia. He reports having a heart catheter in 2008 which was negative for occlusive disease. He denies diaphoresis, fever, chills, palpitations, tachycardia, swelling, N/v. Upon my exam the patient is alert and oriented 3, in no respiratory distress, heart RRR, S1, S2, no edema noted. Workup in the ED included troponin negative at 0.00, coags negative, CMP and CBC unremarkable. Chest x-ray negative for acute pulmonary process Past Med Surg Social Fam HX - Past Medical History Medical history: thyroid disease Psychiatric history: no psych history - Past Surgical History Surgical History: other - Social History Smoking Status: Never smoker Smokeless Tobacco Status: No Alcohol use: occasionally Drug use: none - Family History Brother Hx Family Cardiac Disorders: Yes (Coronary artery disease and stent at the age of 69) Father Living Status: Hx Family GI Disorders: Yes (Liver cirrhosis) Mother Living Status: Hx Family Cardiac Disorders: Yes (irregular heart beat, htn) Hx Family Cancer: Yes (Breast cancer) Hx Family Neurologic Disorders: Yes (dementia) Internal Medicine - H&P: Meds Levothyroxine Sodium [Synthroid] 88 mcg PO DAILY 05/29/15 [History] Aspirin [Lo-Dose Aspirin EC] 81 mg PO DAILY 03/18/17 [History] Fluticasone Propionate Nasal [Flonase] 50 mcg NS DAILY 03/18/17 [History] Lactobacillus Acidophilus/Fos [Acidophilus Probiotic Tablet] 1 tab PO DAILY [History] Multivit-Min/FA/Lycopen/Lutein [Centrum Silver Men Tablet] 1 tab PO DAILY [History] Ibuprofen [Motrin] 600 mg PO Q8HR PRN #30 tab 03/19/17 [Rx] Lidocaine Patch [Lidoderm 5% patch] 1 each TP DAILY PRN #20 adh..patch 03/19/17 [Rx] Omeprazole 20 mg PO DAILY #14 tablet.dr 03/19/17 [Rx] Cetirizine HCl [Zyrtec] 10 mg PO DAILY 08/05/17 [History] Ergocalciferol (VITAMIN D2) [Vitamin D2] 50,000 unit PO QWEEK 08/05/17 [History] 3 Allergy/AdvReac Type Severity Reaction Status Date / Time Penicillins Allergy See Verified 07/29/17 20:19 Comments All Systems PM: A 10-system review of systems was performed and is negative for pertinent findings except as documented above in the HPI. - Constitutional Constitutional: fatigue, weakness (Generalized) - EENT Eyes: no change in vision, no discharge, no pain, no photophobia Ears: no ear discharge, no ear pain, no tinnitus Nose, mouth and throat: no dysphagia, no nasal discharge, no neck pain, no sore throat - Cardiovascular Cardiovascular ROS IM: as per HPI (Reports mild dyspnea upon exertion), chest pain (Intermittent ache with radiation to shoulder and left arm), dyspnea on exertion, no diaphoresis, no dyspnea, no edema, no irregular heart rhythm, no lightheadedness, no orthopnea, no palpitations, no paroxysmal nocturnal dyspnea , no syncope - Respiratory Respiratory: no cough, no dyspnea, no wheezing, no excessive phlegm production - Gastrointestinal Gastrointestinal: no abdominal pain, no diarrhea, no hematemesis, no hematochezia, no melena, no nausea, no vomiting - Musculoskeletal Musculoskeletal ROS IM: no numbness, no tingling Additional comments: Reporting skeletal pain in left leg that is intermittent and exacerbated with activity - Integumentary Integumentary IM: no rash, no unusual bruising - Neurological Neurological ROS: no confusion, no convulsions, no focal weakness, no numbness, no tingling, no tremor(s) - Hematologic/Lymphatic Hematologic/Lymphatic: no easy bruising - Constitutional Vitals: Temp Pulse Resp BP Pulse Ox 98 F 87 18 132/81 100 08/05/17 14:07 08/05/17 13:49 08/05/17 14:07 08/05/17 14:07 08/05/17 13:49 General appearance: Present: cooperative, A&O X 3, no acute distress, answers questions appropriately - Head Head exam: Present: atraumatic, normocephalic - Eye Eye exam: Present: PERRL, conjuntiva pink, sclera anicteric Pupils: Present: PERRL - Neck Neck exam general surgery: Present: supple, trachea midline. Absent: lymphadenopathy - Respiratory Respiratory exam: Present: CTAB. Absent: accessory muscle use, rales, rhonchi, wheezes - Cardiovascular Cardiovascular exam: Present: RRR, +S1, +S2. Absent: diastolic murmur, gallop, rubs, systolic murmur - GI/Abdominal GI/Abdominal exam: Present: normal bowel sounds, soft, no peritoneal signs. Absent: distended, tenderness - Extremities Exam Extremities exam: Present: warm, radial pulses palpable and symmetrical. Absent : calf tenderness, cyanotic, pedal edema - Neurological Exam Neurological exam: Present: CN II-XII intact, oriented X3, no focal deficits. Absent: pronater drift, facial droop, speech deficit - Skin Skin exam: Present: dry, intact Internal Med - H&P Results - Labs CBC & Chem 7: 08/05/17 11:35 08/05/17 11:35 - EKG Data -: EKG Interpreted by Myself EKG shows normal: sinus rhythm Rate: normal - EKG Data Prior EKG available for review: yes When compared to previous EKG: there is no significant change EKG comments: 08/05/17 14:[address] elevation or T-wave inversion identified, normal EKG - Diagnostic Studies Chest x-ray Status: image reviewed by me Additional comments: Negative for acute pulmonary process
[2017-08-05 15:46] LABS: C-Reactive Protein < 1 mg/L (Less than 5); Creatine Kinase 73 Units/L (30-200)
[2017-08-06 01:17] LABS: Basophils # 0.1 K/mcL (0.0-0.2); Eosinophils # 0.2 K/mcL (0.0-0.6); Eosinophils % 3.5 %; Hematocrit 36.5 % (37.5-50.1); Hemoglobin 12.1 g/dL (12.9-16.9); Immature Granulocytes % 0.3 % (0-4); Immature Platelets 1.6 % (1.1-6.1); Lymphocytes # 1.7 K/mcL (0.6-4.6); Lymphocytes % 28.2 %; Mean Corpuscular HGB Conc 33.2 g/dL (31.6-35.5); Mean Corpuscular Hemoglobin 31.5 pg (28.0-33.3); Mean Corpuscular Volume 95.1 fL (83.0-100.0); Mean Platelet Volume 9.1 fL (9.4-12.4); Monocytes # 0.6 K/mcL (0.0-1.3); Monocytes % 10.7 %; Neutrophils # 3.4 K/mcL (1.6-8.9); Platelet Count 244 K/mcL (140-400); Red Blood Count 3.84 M/mcL (4.19-5.50); Segmented Neutrophils % 56.3 %
[2017-08-06 01:30] LABS: BUN/Creatinine Ratio 15 (6-26); Blood Urea Nitrogen 15 mg/dL (8-26); Calcium 8.7 mg/dL (8.6-10.8); Carbon Dioxide 25 mEq/L (19-29); Chloride 107 mEq/L (98-109); Glucose 100 mg/dL (70-99); Osmolality,Calculated 291 (280-300); Potassium 4.1 mEq/L (3.5-4.5); eGFR For African Americans > 60 (> 60); eGFR For Non-African Americans > 60 (> 60)
[2017-08-06 01:31] LABS: Sodium 140 mEq/L (136-145)
[2017-08-06] MEDS ORDERED: *HR* Enoxaparin 40 MG/0.4 ML SYRINGE SQ SCH (06:00)
[2017-08-06] MEDS ORDERED: Loratadine 10 MG TABLET PO SCH (09:00)
[2017-08-06] MEDS ORDERED: Aspirin Enteric Coated 81 MG Tablet PO SCH (09:00)
[2017-08-06 12:03] LABS: Adenovirus Not Detected (Not Detect); Bordetella Pertussis Not Detected (Not Detect); Chlamydophila pneumoniae Not Detected (Not Detect); Coronavirus 229E Not Detected (Not Detect); Coronavirus HKU1 Not Detected (Not Detect); Coronavirus NL63 Not Detected (Not Detect); Coronavirus OC43 Not Detected (Not Detect); Human Metapneumovirus Not Detected (Not Detect); Human Rhinovirus/Enterovirus Not Detected (Not Detect); Influenza A Subtype 2009 H1 Not Detected (Not Detect); Influenza A Untypeable Not Detected (Not Detect); Influenza B Not Detected (Not Detect); Mycoplasma pneumoniae Not Detected (Not Detect); Parainfluenza Virus 1 Not Detected (Not Detect); Parainfluenza Virus 2 Not Detected (Not Detect); Parainfluenza Virus 3 Not Detected (Not Detect); Parainfluenza Virus 4 Not Detected (Not Detect); Respiratory Syncytial Virus Not Detected (Not Detect)
--- NOTE | 2017-08-06 14:56 | Discharge Summary ---
Date of Encounter: 08/06/17 Time of Encounter: 14:49 - Discharge Diagnosis (1) Atypical chest pain Priority: Primary Status: Acute Comments: Nico Rodriguez is 66-year-old male with past medical history hypothyroidism who presented to [facility] on 08/05/2017 with complaints of chest pain , left arm pain, right leg pain and muscle weakness. He was placed in observation status for continued workup and monitoring. His symptoms resolved without intervention. He recently underwent a cardiac workup for ACS rule out. He was discharged home in stable condition with outpatient follow-up. 1. Atypical chest pain: presented with chest pain described as a "radiation to left shoulder and left arm". Left shoulder, left elbow x-ray without acute abnormality. Had recent admission for for similar complaints. He had a cardiac workup at that time which was negative. 2009 [facility] without occlusions, blockages. This presentation, serial troponins negative, EKG without acute ST changes. Chest pain resolved without intervention. Etiology unknown, possible musculoskeletal as patient is quite active with vigorous sports and had a recent fall prior to presentation. Continue home ASA. Can follow up with PCP. 2. History CVA: With no residual effects. Remain neurologically intact throughout inpatient stay. Continue home ASA. 3. Hypothyroidism: per hx. continue home levothyroxine (2) Hypothyroidism Priority: Primary Status: Chronic Qualifiers: Hypothyroidism type: unspecified Qualified Code(s): E03.9 - Hypothyroidism , unspecified - Discharge Medications Home Medications: Levothyroxine Sodium [Synthroid] 88 mcg PO DAILY 05/29/15 [History] Aspirin [Lo-Dose Aspirin EC] 81 mg PO DAILY 03/18/17 [History] Fluticasone Propionate Nasal [Flonase] 50 mcg NS DAILY 03/18/17 [History] Lactobacillus Acidophilus/Fos [Acidophilus Probiotic Tablet] 1 tab PO DAILY [History] Multivit-Min/FA/Lycopen/Lutein [Centrum Silver Men Tablet] 1 tab PO DAILY [History] Ibuprofen [Motrin] 600 mg PO Q8HR PRN #30 tab 03/19/17 [Rx] Lidocaine Patch [Lidoderm 5% patch] 1 each TP DAILY PRN #20 adh..patch 03/19/17 [Rx] Cetirizine HCl [Zyrtec] 10 mg PO DAILY 08/05/17 [History] Ergocalciferol (VITAMIN D2) [Vitamin D2] 50,000 unit PO QWEEK 08/05/17 [History] Allergies/Adverse Reactions: 3 Allergy/AdvReac Type Severity Reaction Status Date / Time Penicillins Allergy See Verified 07/29/17 20:19 Comments Date of admission: 08/05/17 13:55 Primary care physician: Shahnaz Ambrose Discharging clinician: Isaura Davila Anticipated date of discharge: 08/06/17 - Patient Status Disposition: Home, Self-Care Functional capacity at discharge: independent ambulation Overall status at discharge: patient is back to baseline - Discharge Instructions Follow Up With: Shahnaz Paulino MD [Primary Care Provider] - - Diet and Activity Activity: resume usual activities as tolerated Diet: advance to your usual diet Interval History: Seen and examined at bedside, patient is new to me. Information obtained from chart review and patient report. Patient says he feels better now is back to baseline. He reports having a fall approximately 2 weeks prior to presentation when he was walking his dogs. Landed on right hip at that time. Discussed with her the possibility that right leg pain could be residual from fall. 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 Being followed by his PCP, this could also be the cause of left arm pain. He denies chest pain, no shortness of breath. Hospital course: See assessment and plan for hospital course - Time Spent with Patient Total time spent providing and/or coordinating discharge services: Less than 30 minutes - Constitutional Vitals: Temp Pulse Resp BP Pulse Ox 98.0 F 95 18 120/74 96 08/06/17 11:11 08/06/17 11:11 08/06/17 11:11 08/06/17 11:11 08/06/17 11:11 General appearance: Present: cooperative, A&O X 3, no acute distress, answers questions appropriately - Head Head exam: Present: atraumatic, normocephalic - Eye Eye exam: Present: PERRL, conjuntiva pink, sclera anicteric Pupils: Present: PERRL - Neck Neck exam general surgery: Present: supple, trachea midline. Absent: lymphadenopathy - Respiratory Respiratory exam: Present: CTAB. Absent: accessory muscle use, rales, rhonchi, wheezes - Cardiovascular Cardiovascular exam: Present: RRR, +S1, +S2. Absent: diastolic murmur, gallop, rubs, systolic murmur - GI/Abdominal GI/Abdominal exam: Present: normal bowel sounds, soft, no peritoneal signs. Absent: distended, tenderness - Extremities Exam Extremities exam: Present: warm, radial pulses palpable and symmetrical. Absent : calf tenderness, cyanotic, pedal edema - Neurological Exam Neurological exam: Present: CN II-XII intact, oriented X3, no focal deficits. Absent: pronater drift, facial droop, speech deficit - Skin Skin exam: Present: dry, intact
[2017-08-06 14:59] VITALS: BP 112/69
--- NOTE | 2017-08-07 18:46 | Electrocardiograph Report ---
[place] [address] Test Date: 2017-08-05 Pat Name: Nico Rodriguez Department: 103 Room: 3B34 Gender: M [employer]: MSC : 1950 Requested By: Judy Negrete Order Number: [id number] Reading MD: Santy Gamble MD Measurements Intervals [place] Rate: 77 P: 66 [place]: 148 QRS: 12 QRSD: 113 T: 39 QT: 359 QTc: 391 Interpretive Statements SINUS RHYTHM Electronically Signed On 08-07-2017 18:44:45 EDT by Santy Gamble MD
--- NOTE | 2017-08-08 17:24 | Venous Imaging Report ---
LE Venous Duplex Patient Name:Nico Rodriguez Order Number:[id number] Procedure Date:08/05/2017 Date:1950ge:66 yrs Gender:Male Location:[facility] ED Room #: 16 Display Director:Tyson Orosco RDCS Referring MD:DO Arun Mendenhall MD:Zander Delarosa MD Primary Indications:Leg pain Secondary Indications: Risk Factors Yes/No None Impressions: Normal right lower extremity deep and superficial venous exam. Normal contralateral common femoral vein. Recommendations: After imaging the patient returned to their room. Critical findings reported to Dr. Negrete in person by Tyson Orosco RDCS. Updated by Zander Delarosa MD on 08/08/2017 5:18:17 PM electronically signed on 08/08/2017 5:18:30 PM with status of Final
[2017-08-09 14:05] LABS: ANA IgG by ELISA NONE DETECTED (None Detected)
== END 2017-08-06 16:45 | disposition home or self-care (01) ==
LOC: 3BNU 11:14 → EMEROO 11:14 → 3BNU 14:27
PROVIDERS: ADMIT Hospitalist; ATTEND Registered Nurse

== ENCOUNTER 2019-10-13 22:26 | Observation (INO) ==
[2019-10-13] MEDS ORDERED: Aspirin 81 MG TAB.CHEW PO ONE (22:29)
[2019-10-13 22:52] LABS: Basophils # 0.1 K/mcL (0.0-0.2); Eosinophils # 0.2 K/mcL (0.0-0.6); Eosinophils % 3.9 %; Hematocrit 41.9 % (37.5-50.1); Hemoglobin 14.6 g/dL (12.9-16.9); Immature Granulocytes % 0.2 % (0-4); Lymphocytes # 2.4 K/mcL (0.6-4.6); Mean Corpuscular HGB Conc 34.8 g/dL (31.6-35.5); Mean Corpuscular Hemoglobin 32.4 pg (28.0-33.3); Mean Corpuscular Volume 92.9 fL (83.0-100.0); Mean Platelet Volume 8.9 fL (9.4-12.4); Monocytes # 0.6 K/mcL (0.0-1.3); Neutrophils # 2.7 K/mcL (1.6-8.9); Platelet Count 281 K/mcL (140-400); Red Blood Count 4.51 M/mcL (4.19-5.50); Red Cell Distribution Width 12.7 % (11.5-14.5); Segmented Neutrophils % 44.9 %; White Blood Count 5.9 K/mcL (4.3-11.1)
[2019-10-13 23:15] LABS: BUN/Creatinine Ratio 21 (6-26); Blood Urea Nitrogen 17 mg/dL (8-23); Calcium 9.2 mg/dL (8.6-10.3); Carbon Dioxide 28 mEq/L (23-29); Chloride 102 mEq/L (98-107); Glucose 120 mg/dL (70-105); Osmolality,Calculated 295 (280-300); Potassium 3.9 mEq/L (3.5-5.1); Sodium 141 mEq/L (136-145); Troponin I < 0.03 ng/mL (< 0.04); eGFR For African Americans > 60 (> 60); eGFR For Non-African Americans > 60 (> 60)
[2019-10-13] MEDS ORDERED: Aspirin 325 MG TABLET PO ONE (23:28)
[2019-10-14] MEDS ORDERED: Naloxone 0.4 MG/ML INJ IVP PRN (04:43)
[2019-10-14] MEDS ORDERED: ALPRAZolam 0.5 MG TABLET PO PRN (04:45)
[2019-10-14] MEDS ORDERED: Acetaminophen 325 MG TABLET PO PRN (04:47)
[2019-10-14] MEDS ORDERED: *HR* Heparin 5,000 UNIT/ML VIAL SQ SCH (06:00)
[2019-10-14 06:34] LABS: Hematocrit 41.4 % (37.5-50.1); Mean Corpuscular HGB Conc 33.8 g/dL (31.6-35.5); Mean Corpuscular Hemoglobin 32.1 pg (28.0-33.3); Mean Platelet Volume 9.3 fL (9.4-12.4); Platelet Count 266 K/mcL (140-400); Red Blood Count 4.36 M/mcL (4.19-5.50); Red Cell Distribution Width 12.9 % (11.5-14.5); White Blood Count 5.6 K/mcL (4.3-11.1)
[2019-10-14 06:49] LABS: BUN/Creatinine Ratio 23 (6-26); Blood Urea Nitrogen 18 mg/dL (8-23); Calcium 8.8 mg/dL (8.6-10.3); Carbon Dioxide 28 mEq/L (23-29); Chloride 103 mEq/L (98-107); Glucose 101 mg/dL (70-105); Osmolality,Calculated 290 (280-300); Potassium 4.3 mEq/L (3.5-5.1); Sodium 139 mEq/L (136-145); eGFR For African Americans > 60 (> 60); eGFR For Non-African Americans > 60 (> 60)
[2019-10-14] MEDS ORDERED: carvediloL 6.25 MG TABLET PO SCH (08:00)
[2019-10-14] MEDS ORDERED: cloNIDine HCl 0.1 MG TABLET PO SCH (09:00)
[2019-10-14] MEDS ORDERED: Aspirin Enteric Coated 81 MG Tablet PO SCH (09:00)
[2019-10-14 15:43] VITALS: BP 128/75
== END 2019-10-14 17:22 | disposition home or self-care (01) ==
LOC: EMEROOARM 22:26 → 3NENU 22:26 → SUATTDRO 10-14 00:01 → 3NENU 10-14 00:37
PROVIDERS: ADMIT Internal Medicine; ATTEND Internal Medicine

== ENCOUNTER 2020-05-26 17:40 | Observation (INO) ==
[2020-05-26] MEDS ORDERED: Isovue-370 500 ML BOTTLE IVP ONE (18:20)
[2020-05-26 18:30] LABS: Basophils # 0.1 K/mcL (0.0-0.2); Basophils % 1.2 %; Eosinophils # 0.3 K/mcL (0.0-0.6); Eosinophils % 4.4 %; Hematocrit 39.8 % (37.5-50.1); Hemoglobin 13.2 g/dL (12.9-16.9); Immature Granulocytes % 0.2 % (0-4); Lymphocytes # 1.5 K/mcL (0.6-4.6); Lymphocytes % 25.2 %; Mean Corpuscular HGB Conc 33.2 g/dL (31.6-35.5); Mean Corpuscular Volume 93.4 fL (83.0-100.0); Mean Platelet Volume 9.1 fL (9.4-12.4); Monocytes # 0.6 K/mcL (0.0-1.3); Monocytes % 10.1 %; Neutrophils # 3.5 K/mcL (1.6-8.9); Platelet Count 255 K/mcL (140-400); Red Blood Count 4.26 M/mcL (4.19-5.50); Red Cell Distribution Width 12.2 % (11.5-14.5); Segmented Neutrophils % 58.9 %; White Blood Count 5.9 K/mcL (4.3-11.1)
[2020-05-26 18:55] LABS: Alanine Aminotransferase 15 Units/L (7-52); Albumin/Globulin Ratio 1.5 (1.1-2.2); Alkaline Phosphatase 82 Units/L (34-104); Aspartate Amino Transferase 28 Units/L (13-39); BUN/Creatinine Ratio 18 (6-26); Bilirubin,Total 0.7 mg/dL (0.3-1.0); Blood Urea Nitrogen 12 mg/dL (8-23); Carbon Dioxide 27 mEq/L (23-29); Chloride 103 mEq/L (98-107); Globulin 2.7 g/dL (2.4-3.5); Glucose 101 mg/dL (70-105); Osmolality,Calculated 282 (280-300); Potassium 3.8 mEq/L (3.5-5.1); Sodium 136 mEq/L (136-145); Total Protein 6.7 g/dL (6.4-8.9); Troponin I < 0.03 ng/mL (< 0.04); eGFR For African Americans > 60 (> 60); eGFR For Non-African Americans > 60 (> 60)
[2020-05-26] MEDS ORDERED: Aspirin 325 MG TABLET PO ONE (21:16)
[2020-05-26] MEDS ORDERED: Acetaminophen 325 MG TABLET PO PRN (23:36)
[2020-05-26] MEDS ORDERED: Naloxone 0.4 MG/ML INJ IVP PRN (23:36)
[2020-05-26] MEDS ORDERED: *HR* Promethazine 25 MG/ML VIAL IVP PRN (23:36)
[2020-05-26] MEDS ORDERED: Perflutren Lipid Microsphere 1.3 ML in 0.9 % Sodium Chloride 8.7 ML IVP PRN (23:38)
[2020-05-27] MEDS ORDERED: ALPRAZolam 0.5 MG TABLET PO PRN (00:44)
[2020-05-27 01:13] LABS: Basophils # 0.1 K/mcL (0.0-0.2); Basophils % 1.6 %; Eosinophils # 0.4 K/mcL (0.0-0.6); Hemoglobin 13.9 g/dL (12.9-16.9); Lymphocytes # 1.5 K/mcL (0.6-4.6); Lymphocytes % 29.8 %; Mean Corpuscular HGB Conc 33.9 g/dL (31.6-35.5); Mean Corpuscular Hemoglobin 32.3 pg (28.0-33.3); Mean Corpuscular Volume 95.1 fL (83.0-100.0); Mean Platelet Volume 9.3 fL (9.4-12.4); Monocytes # 0.4 K/mcL (0.0-1.3); Monocytes % 8.2 %; Neutrophils # 2.7 K/mcL (1.6-8.9); Platelet Count 253 K/mcL (140-400); Red Blood Count 4.31 M/mcL (4.19-5.50); Red Cell Distribution Width 12.2 % (11.5-14.5); Segmented Neutrophils % 53.4 %
[2020-05-27 01:18] LABS: Prothrombin Time 10.8 Seconds (9.4-12.1)
[2020-05-27 01:28] LABS: BUN/Creatinine Ratio 12 (6-26); Blood Urea Nitrogen 10 mg/dL (8-23); Calcium 9.1 mg/dL (8.6-10.3); Carbon Dioxide 27 mEq/L (23-29); Chloride 103 mEq/L (98-107); Chol/HDL Ratio 3.3 (0-4.9); Cholesterol 183 mg/dL (< 200); Glucose 147 mg/dL (70-105); HDL Cholesterol 56 mg/dL (40-59); LDL Cholesterol,Calculated 105 mg/dL (< 100); Magnesium 2.3 mg/dL (1.6-2.6); Osmolality,Calculated 286 (280-300); Phosphorous 2.9 mg/dL (2.7-4.5); Potassium 3.4 mEq/L (3.5-5.1); Sodium 137 mEq/L (136-145); Triglycerides 112 mg/dL (< 150); eGFR For African Americans > 60 (> 60); eGFR For Non-African Americans > 60 (> 60)
[2020-05-27 01:41] LABS: Thyroid Stimulating Hormone 4.346 mcIU/mL (0.340-5.600)
[2020-05-27] MEDS ORDERED: Regadenoson 0.4 MG/5 ML SYRINGE IVP ONE (06:12)
[2020-05-27] MEDS ORDERED: carvediloL 6.25 MG TABLET PO SCH (08:00)
[2020-05-27] MEDS ORDERED: Aspirin Enteric Coated 81 MG Tablet PO SCH (09:00)
[2020-05-27] MEDS ORDERED: Fluticasone Propionate Nasal 50 MCG/SPRAY BOTTLE NS SCH (09:00)
[2020-05-27 11:03] VITALS: BP 125/76
== END 2020-05-27 13:25 | disposition home or self-care (01) ==
LOC: EMEROOARM 17:40 → 3BNU 17:40 → SUATTDRO 23:30 → 3BNU 05-27 00:09
PROVIDERS: ADMIT Student in an Organized Health Care Education/Training Program; ATTEND Internal Medicine

== ENCOUNTER 2020-11-19 15:36 | Observation (INO) ==
[2020-11-19 16:49] LABS: Basophils # 0.1 K/mcL (0.0-0.2); Basophils % 1.3 %; Eosinophils # 0.3 K/mcL (0.0-0.6); Eosinophils % 4.6 %; Hematocrit 43.3 % (37.5-50.1); Hemoglobin 14.6 g/dL (12.9-16.9); Immature Granulocytes % 0.2 % (0-4); Lymphocytes # 1.4 K/mcL (0.6-4.6); Lymphocytes % 25.1 %; Mean Corpuscular HGB Conc 33.7 g/dL (31.6-35.5); Mean Corpuscular Hemoglobin 31.5 pg (28.0-33.3); Mean Corpuscular Volume 93.3 fL (83.0-100.0); Mean Platelet Volume 9.5 fL (9.4-12.4); Monocytes # 0.4 K/mcL (0.0-1.3); Neutrophils # 3.3 K/mcL (1.6-8.9); Platelet Count 268 K/mcL (140-400); Red Blood Count 4.64 M/mcL (4.19-5.50); Red Cell Distribution Width 11.8 % (11.5-14.5); Segmented Neutrophils % 60.8 %; White Blood Count 5.4 K/mcL (4.3-11.1)
[2020-11-19 17:16] LABS: BUN/Creatinine Ratio 12 (6-26); Blood Urea Nitrogen 12 mg/dL (8-23); Calcium 9.5 mg/dL (8.6-10.3); Carbon Dioxide 26 mEq/L (23-29); Chloride 103 mEq/L (98-107); Glucose 91 mg/dL (70-105); Osmolality,Calculated 285 (280-300); Potassium 3.8 mEq/L (3.5-5.1); Sodium 138 mEq/L (136-145); eGFR For African Americans > 60 (> 60); eGFR For Non-African Americans > 60 (> 60)
[2020-11-19 17:24] LABS: Troponin I < 0.03 ng/mL (< 0.04)
[2020-11-19] MEDS ORDERED: Ondansetron 4 MG/2 ML VIAL IVP PRN (19:26)
[2020-11-19] MEDS ORDERED: Acetaminophen 325 MG TABLET PO PRN (19:26)
[2020-11-19] MEDS ORDERED: Nitroglycerin 0.4 MG TAB.SUBL SL PRN (19:29)
[2020-11-19] MEDS ORDERED: Aspirin 325 MG TABLET PO ONE (19:29)
[2020-11-19] MEDS ORDERED: Isosorbide MONOnitrate (24 HR) 30 MG TAB.ER.24H PO SCH (20:00)
[2020-11-19] MEDS: carvediloL 6.25 MG TABLET PO SCH (23:40)
[2020-11-20] MEDS ORDERED: Ibuprofen 400 MG TABLET PO PRN (01:28)
[2020-11-20 02:22] LABS: Hematocrit 40.5 % (37.5-50.1); Hemoglobin 13.6 g/dL (12.9-16.9); Mean Corpuscular HGB Conc 33.6 g/dL (31.6-35.5); Mean Corpuscular Hemoglobin 31.6 pg (28.0-33.3); Mean Corpuscular Volume 94.2 fL (83.0-100.0); Mean Platelet Volume 9.3 fL (9.4-12.4); Platelet Count 234 K/mcL (140-400); Red Cell Distribution Width 11.9 % (11.5-14.5); White Blood Count 5.4 K/mcL (4.3-11.1)
[2020-11-20 02:43] LABS: BUN/Creatinine Ratio 17 (6-26); Blood Urea Nitrogen 14 mg/dL (8-23); Carbon Dioxide 27 mEq/L (23-29); Chloride 106 mEq/L (98-107); Glucose 125 mg/dL (70-105); Magnesium 2.1 mg/dL (1.6-2.6); Osmolality,Calculated 290 (280-300); Phosphorous 4.3 mg/dL (2.7-4.5); Potassium 3.4 mEq/L (3.5-5.1); Sodium 139 mEq/L (136-145); eGFR For African Americans > 60 (> 60); eGFR For Non-African Americans > 60 (> 60)
[2020-11-20] MEDS: *HR* Enoxaparin 40 MG/0.4 ML SYRINGE SQ SCH (05:41)
[2020-11-20] MEDS: carvediloL 6.25 MG TABLET PO SCH (08:09)
[2020-11-20] MEDS ORDERED: Perflutren Lipid Microsphere 1.3 ML in 0.9 % Sodium Chloride 8.7 ML IVP PRN (08:48)
[2020-11-20] MEDS ORDERED: Aspirin 81 MG TAB.CHEW PO SCH (09:00)
[2020-11-20] MEDS ORDERED: Nitroglycerin 0.4 MG TAB.SUBL SL PRN (15:23)
[2020-11-20] MEDS ORDERED: diazePAM 5 MG TABLET PO PRN (15:23)
[2020-11-20] MEDS: Pantoprazole 40 MG VIAL IVP SCH ×2 (16:32→16:40)
[2020-11-20] MEDS ORDERED: carvediloL 6.25 MG TABLET PO SCH (17:00)
[2020-11-21 05:52] LABS: Basophils % 0.7 %; Eosinophils # 0.4 K/mcL (0.0-0.6); Eosinophils % 6.2 %; Hematocrit 41.4 % (37.5-50.1); Hemoglobin 13.7 g/dL (12.9-16.9); Immature Granulocytes % 0.2 % (0-4); Lymphocytes # 1.7 K/mcL (0.6-4.6); Lymphocytes % 30.3 %; Mean Corpuscular HGB Conc 33.1 g/dL (31.6-35.5); Mean Corpuscular Volume 93.7 fL (83.0-100.0); Mean Platelet Volume 9.4 fL (9.4-12.4); Monocytes # 0.5 K/mcL (0.0-1.3); Monocytes % 9.3 %; Platelet Count 251 K/mcL (140-400); Red Blood Count 4.42 M/mcL (4.19-5.50); Segmented Neutrophils % 53.3 %; White Blood Count 5.7 K/mcL (4.3-11.1)
[2020-11-21] MEDS: *HR* Enoxaparin 40 MG/0.4 ML SYRINGE SQ SCH (05:52)
[2020-11-21 06:34] VITALS: BP 104/69
[2020-11-21 07:18] LABS: BUN/Creatinine Ratio 17 (6-26); Blood Urea Nitrogen 13 mg/dL (8-23); Calcium 9.1 mg/dL (8.6-10.3); Carbon Dioxide 24 mEq/L (23-29); Chloride 107 mEq/L (98-107); Glucose 101 mg/dL (70-105); Magnesium 2.1 mg/dL (1.6-2.6); Osmolality,Calculated 288 (280-300); Potassium 3.9 mEq/L (3.5-5.1); Sodium 139 mEq/L (136-145); eGFR For African Americans > 60 (> 60); eGFR For Non-African Americans > 60 (> 60)
[2020-11-21 07:19] LABS: Thyroid Stimulating Hormone 1.834 mcIU/mL (0.340-5.600)
[2020-11-21] MEDS ORDERED: Multivit/Ca/Min/Fe/FA 1 TAB TABLET PO SCH (09:00)
[2020-11-21] MEDS ORDERED: Lactobacillus 1 EACH CAP.SPRINK PO SCH (09:00)
[2020-11-21] MEDS ORDERED: Aspirin Enteric Coated 81 MG Tablet PO SCH (09:00)
[2020-11-21] MEDS ORDERED: Cholecalciferol (D-3) 1,000 UNIT (25MCG) TABLET PO SCH (09:00)
[2020-11-21] MEDS ORDERED: Finasteride 5 MG TABLET PO SCH (09:00)
== END 2020-11-21 07:50 | disposition short-term general hospital (02) ==
LOC: 3BNU 15:36 → EMEROOARM 15:36 → SUATTDRO 20:02 → 3BNU 20:48
PROVIDERS: ADMIT Internal Medicine; ATTEND Pharmacist

== ENCOUNTER 2022-07-23 12:33 | Observation (INO) ==
[2022-07-23 13:16] LABS: Basophils # 0.1 K/mcL (0.0-0.2); Basophils % 0.7 %; Eosinophils # 0.2 K/mcL (0.0-0.6); Eosinophils % 2.1 %; Hematocrit 42.4 % (37.5-50.1); Hemoglobin 14.1 g/dL (12.9-16.9); Immature Granulocytes % 0.2 % (0-4); Lymphocytes # 1.4 K/mcL (0.6-4.6); Lymphocytes % 17.1 %; Mean Corpuscular HGB Conc 33.3 g/dL (31.6-35.5); Mean Corpuscular Hemoglobin 31.3 pg (28.0-33.3); Mean Corpuscular Volume 94.2 fL (83.0-100.0); Mean Platelet Volume 9.5 fL (9.4-12.4); Monocytes # 0.6 K/mcL (0.0-1.3); Monocytes % 6.5 %; Neutrophils # 6.2 K/mcL (1.6-8.9); Platelet Count 279 K/mcL (140-400); Red Cell Distribution Width 12.5 % (11.5-14.5); Segmented Neutrophils % 73.4 %; White Blood Count 8.4 K/mcL (4.3-11.1)
[2022-07-23 13:38] LABS: BUN/Creatinine Ratio 16 (6-26); Blood Urea Nitrogen 12 mg/dL (8-23); Calcium 9.7 mg/dL (8.6-10.3); Carbon Dioxide 32 mEq/L (23-29); Chloride 101 mEq/L (98-107); Glucose 99 mg/dL (70-105); Osmolality,Calculated 284 (280-300); Potassium 3.8 mEq/L (3.5-5.1); Sodium 137 mEq/L (136-145)
[2022-07-23 13:39] LABS: Troponin I < 0.03 ng/mL (< 0.04)
[2022-07-23] MEDS: Nitroglycerin 0.4 MG TAB.SUBL SL PRN ×2 (15:31→15:37)
[2022-07-23] MEDS ORDERED: Naloxone 0.4 MG/ML INJ IVP PRN (15:46)
[2022-07-23] MEDS ORDERED: Nitroglycerin 0.4 MG TAB.SUBL SL PRN (15:49)
[2022-07-24 02:59] LABS: Hematocrit 39.1 % (37.5-50.1); Hemoglobin 13.2 g/dL (12.9-16.9); Mean Corpuscular HGB Conc 33.8 g/dL (31.6-35.5); Mean Corpuscular Hemoglobin 31.2 pg (28.0-33.3); Mean Corpuscular Volume 92.4 fL (83.0-100.0); Mean Platelet Volume 9.4 fL (9.4-12.4); Platelet Count 239 K/mcL (140-400); Red Blood Count 4.23 M/mcL (4.19-5.50); Red Cell Distribution Width 12.7 % (11.5-14.5); White Blood Count 5.2 K/mcL (4.3-11.1)
[2022-07-24 03:18] LABS: BUN/Creatinine Ratio 16 (6-26); Blood Urea Nitrogen 11 mg/dL (8-23); Calcium 8.9 mg/dL (8.6-10.3); Carbon Dioxide 27 mEq/L (23-29); Chloride 105 mEq/L (98-107); Glucose 87 mg/dL (70-105); Magnesium 1.9 mg/dL (1.6-2.6); Osmolality,Calculated 285 (280-300); Potassium 3.6 mEq/L (3.5-5.1); Sodium 138 mEq/L (136-145)
[2022-07-24 03:19] LABS: Troponin I < 0.03 ng/mL (< 0.04)
[2022-07-24] MEDS ORDERED: *HR* Enoxaparin 40 MG/0.4 ML SYRINGE SQ SCH (06:00)
[2022-07-24 06:48] VITALS: TEMP 98
[2022-07-24] MEDS ORDERED: Regadenoson 0.4 MG/5 ML SYRINGE IVP ONE (07:04)
[2022-07-24 11:01] VITALS: BP 99/64; PULSE 55; O2SAT 99
== END 2022-07-24 14:31 | disposition home or self-care (01) ==
LOC: 3BNU 12:33 → EMEROOARM 12:33 → 3BNU 17:05
PROVIDERS: ADMIT General Practice; ATTEND General Practice